=== PATIENT | female | born 1950 | race Caucasian/White ===

== ENCOUNTER 2023-07-30 09:45 | Day surgery (SDC) | payer OTHER ==
--- NOTE | 2023-07-29 16:31 | RAD REPORT ---
EXAM DESCRIPTION: RAD - Chest Pa And Lat (2 Views) - 07/29/2023 4:26 pm CLINICAL HISTORY: Pre op pending skin cancer removal Chest pain. TECHNIQUE: PA and lateral views of the chest were obtained. FINDINGS: The lungs are hyperexpanded compatible with COPD. The heart is upper limit of normal in si ze. No fracture or aggressive bony process. IMPRESSION: COPD without acute process identified. The USPSTF recommends annual screening for lung cancer with low-dose CT (LDCT) in adults aged 50 to 8 0 years who have a 20 pack-year smoking history and currently smoke or have quit within the past 15 y ears.
[2023-07-29 16:35] LABS: Absolute Basophils 0.1 K/uL (0-0.5); Absolute Eosinophils 0.5 K/uL (0-0.5); Absolute Lymphocytes (CBC) 0.8 K/uL (0.7-4.9); Absolute Neutrophil 9.1 K/uL (1.8-8.0); Basophils % 0.5 % (0-1.3); Eosinophils % 4.1 % (0-4.4); Hematocrit 36.2 % (36.0-45.0); Hemoglobin 12.4 g/dL (12.0-15.0); Lymphocytes % 7.2 % (15.3-44.8); MCH 29.3 pg (27.0-35.0); MCHC 34.3 g/dL (32.0-36.0); MCV 85.5 fL (80-100); MPV 10.2 fL (7.6-11.3); Monocytes % 8.6 % (3.3-12.3); Neutrophils % 79.6 % (41.7-73.7); Platelets 257 thou/uL (152-406); RBC Red Blood Cell Count 4.24 M/uL (3.86-4.86); Red Cell Distribution Width 12.8 % (12.1-15.2)
[2023-07-29 16:46] LABS: Anion Gap 9.1 mEq/L (5.0-15.0); Potassium 4.1 mEq/L (3.5-5.1)
[2023-07-30] MEDS ORDERED: ONDANSETRON 4 MG/2 ML VIAL ONE (10:10)
[2023-07-30] MEDS ORDERED: FENTANYL CITR 100 MCG/2 ML ONE (10:10)
[2023-07-30] MEDS ORDERED: MIDAZOLAM HCL 2 MG/2 ML INJ ONE (10:10)
[2023-07-30] MEDS ORDERED: LIDOCAINE 2% MPF 5 ML VIAL ONE (10:10)
[2023-07-30] MEDS ORDERED: propofoL 200 MG/20 ML VIAL IV ONE (10:10)
[2023-07-30] MEDS ORDERED: KETOROLAC 30 MG/ML INJ ONE (10:10)
[2023-07-30] MEDS ORDERED: dexAMETHasone 4 MG/ML VIAL ONE (10:10)
[2023-07-30] MEDS: NA CHLORIDE 0.9% 1,000 ML ONE (10:15)
[2023-07-30] MEDS ORDERED: LIDOCAINE 1% MPF 10 ML AMPULE ONE (10:17)
[2023-07-30] MEDS: CIPROFLOXACIN 400mg IV 400 MG/200 ML BAG IV ONE (10:53)
[2023-07-30] MEDS: BUPIVACAINE 0.5% PF 10 ML VIAL ONE (11:15)
[2023-07-30] MEDS ORDERED: NS 0.9% VIAL 10 ML ONE (11:30)
--- NOTE | 2023-07-30 11:50 | P.BOP ---
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
--- NOTE | 2023-07-30 12:47 | EKG ---
Test Date: 2023-07-29 Test Time: 16:13:15 [employer] Personality: TODD MEASUREMENT RESULTS: Intervals: Rate: 69 MT: 196 QRSD: 98 QT: 418 QTc: 447 [place]: P: 60 MT: 196 QRS: -65 T: 86 INTERPRETIVE STATEMENTS: Normal sinus rhythm Left anterior fascicular block Abnormal ECG No previous ECG available for comparison Electronically Signed On 07-30-23 12:45:30 CDT by Ventura Meeks
[2023-07-30 13:55] VITALS: BP 123/50; TEMP 97; O2SAT 95
--- NOTE | 2023-07-31 02:00 | OP ---
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 Procedure: Wide excision of left chest ulcerated squamous cell carcinoma, 13 x 12 x 1 cm with frozen section. Estimated Blood Loss: Less than 10 cc. Specimen: Mass. Findings: Margin free of tumor. We also checked the margins grossly. Pathology expecting to give u s more result once the permanent section is completed. Anesthesia: General plus local. Complications: None. Packing: Wet-to-dry, normal saline. Indication: This is a case of a 72-year-old patient, who comes to us with a large squamous cell carc inoma. It has been in that upper chest, diagnosed recently by a alumnae secretary as squamous cell carci noma and sent to us for wide excision. The benefits, alternatives, and risks were fully explained, w hich include, but not limited to, infection, bleeding, damage to adjacent structures, anesthesia comp lication, recurrence, AL, and even . She also understands this may not relieve any symptoms. S he might need more than one surgical intervention. She understands also to follow with alumnae secretary for the rest of her life. At the same time, she understands that it is a large area, we might most likely will not be able to close this, and she may need a skin graft in the future or a skin substitu te in conjunction with wound care. She understood, signed the consent. The area of concern was kenton jae by me and the patient in the holding room. Description Of Procedure: The patient was brought to the operating room and placed in supine positio n. Anesthesia was without complication. The left chest was prepped and draped in the usual sterile fashion. A time-out was called and after that, we proceeded to remove this ulcerated mass with at le ast 1-2 cm peripheral margins and then deep, at least 1 cm prefer margins. This specimen was sent to pathologist with orientation stitches and it comes back as described above. We obtained hemostasis in the area and because we cannot close, we packed the area with wet-to-dry. The patient tolerated t he procedure well. The patient was sent to Recovery in stable condition. QUINTIN/MARLENY Voice ID: [id number] Report ID: [id number]
--- NOTE | 2023-07-31 02:02 | DS ---
Date of Discharge: 07/30/2023 Diagnosis: Left chest ulcerated squamous cell carcinoma. Procedure: Wide excision of left chest squamous cell carcinoma. Disposition: Home. Activity: As tolerated, no heavy lifting. Followup: Follow up in my office this Friday, where we are going to teach her once again how to do d ressing changes. QUINTIN/MARLENY Voice ID: [id number] Report ID: [id number]
== END 2023-07-30 13:38 | disposition home or self-care (01) ==
LOC: OR 09:45
PROVIDERS: ATTEND Surgery
PROC: 0HB5XZZ Excision of Chest Skin, External Approach (ICD-10-PCS; principal; 2023-07-30 12:00)
DX: C44.529 Squamous cell carcinoma of skin of other part of trunk (principal); I10 Essential (primary) hypertension; K21.9 Gastro-esophageal reflux disease without esophagitis; E11.9 Type 2 diabetes mellitus without complications; E66.01 Morbid (severe) obesity due to excess calories; Z68.41 Body mass index [BMI] 40.0-44.9, adult
CPT/HCPCS: 93005; 85025; 80048; 36415; 82947 ×2; 88305; 71046; 11606; A4216; J2704; J1100; J2001; J2250; J3010; J2405; J0744; J7030; 88329